=== PATIENT | female | born 1990 | race Caucasian/White ===

== ENCOUNTER → 2018-05-10 | Outpatient (CLI) | payer OTHER ==
[~2018-05-10] MED LIST: MIRENA52 MG IU; NORCO 325 MG-51 TAB PO; TORADOL10 MG PO; ULTRAM 50MG TAB50 MG PO; VENTOLIN0.09 MG IH
== END ==
LOC: MHCPAIN 12:42
DX: G89.29 Other chronic pain (principal); M79.2 Neuralgia and neuritis, unspecified; M79.672 Pain in left foot
CPT/HCPCS: G0463